=== PATIENT | female | born 1940 | race Caucasian/White ===

== ENCOUNTER 2020-03-28 19:24 | Observation (INO) ==
[2020-03-28] MEDS ORDERED: SODIUM CHLORIDE 0.9% 1,000 ML IV STA (20:04)
[2020-03-28] MEDS ORDERED: ONDANSETRON 4 MG/2 ML VIAL IV STA (20:04)
[2020-03-28 20:10] LABS: Basophils # 0.1 10*3/uL (0.0-0.2); Basophils % 0.6 % (0.0-0.8); Eosinophils # 0.1 10*3/uL (0.0-0.87); Hematocrit 40.5 VOL% (35.7-47.0); Hemoglobin 13.2 GM/DL (12.0-16.0); Immature Granulocytes % 1.3 %; Immature Granulocytes Absolute 0.13 #; Lymphocytes # 1.3 10*3/uL (1.4-4.0); Lymphocytes % 13.3 % (21.3-54.2); Mean Corpuscular HGB Conc 32.6 GM/DL (32-36); Mean Corpuscular Volume 86.5 FL (87-102); Mean Platelet Volume 10.3 FL (9.6-12.0); Monocytes % 5.2 % (1.7-12.7); Neutrophils % 78.6 % (38.7-73.9); Platelet Count 211 T/CUMM (130-400); Red Blood Count 4.68 MC/CUMM (3.8-5.5); Red Cell Distribution Width 12.5 % (9.3-17.3); White Blood Count 9.9 T/CUMM (4-12)
[2020-03-28] MEDS ORDERED: hydrALAZINE 20 MG/1 ML VIAL IV STA (20:18)
[2020-03-28 20:35] LABS: Alanine Aminotransferase 20 U/L (13-56); Albumin 2.9 G/DL (3.4-5.0); Alkaline Phosphatase 106 U/L (45-117); Aspartate Amino Transferase 25 U/L (0-37); Bilirubin,Total < 0.39 MG/DL (0.2-1.0); Blood Urea Nitrogen 27 MG/DL (7-18); Calcium 9.4 MG/DL (8.5-10.1); Estimated Glom Filtration Rate 32 ML/MIN; Ferritin 173.6 ng/ml (8-252); Glucose 235 MG/DL (74-106); Osmolality,Calculated 282.1 MOS/KG (273-304); Total Protein 8.2 G/DL (6.4-8.3)
[2020-03-28 21:40] LABS: Bilirubin,Urine Negative (Negative); Blood, Urine Negative (Negative); Glucose,Urine (UA) >=500 mg/dL (Negative); Ketones,Urine 5 mg/dL (Negative); Nitrite,Urine Negative (Negative); Protein,Urine >=500 MG/DL; RBC,Urine 1 /HPF (0-4); Urine Appearance CLEAR (Clear); Urine Color Yellow (Yellow); Urine Specific Gravity 1.013 (1.001-1.035); Urine Urobilinogen < 2.0 EU/DL (0.2-1.0); WBC,Urine 1 /HPF (0-6)
[2020-03-28] MEDS ORDERED: ONDANSETRON 4 MG/2 ML VIAL IV PRN (22:45)
[2020-03-28] MEDS ORDERED: ACETAMINOPHEN 325 MG TABLET PO PRN (22:45)
[2020-03-29] MEDS: SODIUM CHLORIDE 0.9% 1,000 ML IV SCH ×3 (00:14→16:30)
[2020-03-29 01:30] LABS: Basophils # 0.1 10*3/uL (0.0-0.2); Basophils % 0.5 % (0.0-0.8); Eosinophils % 0.2 % (0.00-10.9); Hemoglobin 12.5 GM/DL (12.0-16.0); Lymphocytes # 1.9 10*3/uL (1.4-4.0); Lymphocytes % 18.6 % (21.3-54.2); Mean Corpuscular HGB Conc 32.9 GM/DL (32-36); Mean Corpuscular Volume 86.8 FL (87-102); Monocytes % 6.2 % (1.7-12.7); Neutrophils % 73.5 % (38.7-73.9); Platelet Count 203 T/CUMM (130-400); Red Blood Count 4.38 MC/CUMM (3.8-5.5); Red Cell Distribution Width 12.5 % (9.3-17.3); White Blood Count 10.4 T/CUMM (4-12)
[2020-03-29 01:50] LABS: Albumin 2.5 G/DL (3.4-5.0); Bilirubin,Total 0.4 MG/DL (0.2-1.0); Calcium 8.7 MG/DL (8.5-10.1); Osmolality,Calculated 284.7 MOS/KG (273-304); Total Protein 7.2 G/DL (6.4-8.3)
[2020-03-29] MEDS: PANTOPRAZOLE 40 MG TABLET PO SCH (08:37)
[2020-03-29] MEDS: carvediloL 6.25 MG TABLET PO SCH ×2 (13:22→21:40)
[2020-03-29] MEDS ORDERED: hydrALAZINE 20 MG/1 ML VIAL IV PRN (20:01)
[2020-03-30] MEDS: SODIUM CHLORIDE 0.9% 1,000 ML IV SCH (01:18)
[2020-03-30 06:20] LABS: Basophils % 0.5 % (0.0-0.8); Eosinophils # 0.3 10*3/uL (0.0-0.87); Eosinophils % 3.3 % (0.00-10.9); Hematocrit 33.8 VOL% (35.7-47.0); Hemoglobin 10.6 GM/DL (12.0-16.0); Immature Granulocytes % 0.5 %; Immature Granulocytes Absolute 0.04 #; Lymphocytes # 2.4 10*3/uL (1.4-4.0); Lymphocytes % 29.8 % (21.3-54.2); Mean Corpuscular HGB Conc 31.4 GM/DL (32-36); Mean Corpuscular Volume 90.4 FL (87-102); Mean Platelet Volume 10.5 FL (9.6-12.0); Monocytes % 7.7 % (1.7-12.7); Neutrophils % 58.2 % (38.7-73.9); Platelet Count 158 T/CUMM (130-400); Red Blood Count 3.74 MC/CUMM (3.8-5.5); Red Cell Distribution Width 12.8 % (9.3-17.3); White Blood Count 8.1 T/CUMM (4-12)
[2020-03-30 06:44] LABS: Calcium 7.8 MG/DL (8.5-10.1); Osmolality,Calculated 292.8 MOS/KG (273-304)
[2020-03-30] MEDS ORDERED: MAGNESIUM SULF RIDER 2 GM in PREMIX 1 EACH IV ONE ×2 (07:20→09:00)
[2020-03-30] MEDS ORDERED: MAGNESIUM SULF RIDER 2 GM in PREMIX 1 EACH IV PRN (09:06)
[2020-03-30] MEDS ORDERED: MAGNESIUM SULF RIDER 4 GM in PREMIX 1 EACH IV PRN (09:06)
[2020-03-30] MEDS: PANTOPRAZOLE 40 MG TABLET PO SCH (09:56)
[2020-03-30] MEDS: carvediloL 6.25 MG TABLET PO SCH ×2 (09:56→20:19)
[2020-03-30] MEDS: ASPIRIN EC 81 MG TABLET PO SCH (10:19)
[2020-03-30] MEDS ORDERED: DEXTROSE 50% 25 GM/50 ML VIAL IV PRN (14:38)
[2020-03-30] MEDS ORDERED: GLUCAGON 1 MG VIAL IM PRN (14:38)
[2020-03-31 05:47] LABS: Basophils % 0.5 % (0.0-0.8); Eosinophils # 0.1 10*3/uL (0.0-0.87); Eosinophils % 1.6 % (0.00-10.9); Hematocrit 34.3 VOL% (35.7-47.0); Immature Granulocytes % 0.6 %; Immature Granulocytes Absolute 0.05 #; Lymphocytes # 1.9 10*3/uL (1.4-4.0); Lymphocytes % 23.3 % (21.3-54.2); Mean Corpuscular HGB Conc 32.1 GM/DL (32-36); Mean Corpuscular Volume 89.6 FL (87-102); Mean Platelet Volume 10.7 FL (9.6-12.0); Monocytes % 8.6 % (1.7-12.7); Neutrophils % 65.4 % (38.7-73.9); Platelet Count 154 T/CUMM (130-400); Red Blood Count 3.83 MC/CUMM (3.8-5.5); Red Cell Distribution Width 12.9 % (9.3-17.3); White Blood Count 8.2 T/CUMM (4-12)
[2020-03-31] MEDS: SODIUM CHLORIDE 0.9% 1,000 ML IV SCH (05:52)
[2020-03-31 06:08] LABS: Calcium 8.6 MG/DL (8.5-10.1); Osmolality,Calculated 288.3 MOS/KG (273-304)
[2020-03-31] MEDS ORDERED: SODIUM CHLORIDE 0.9% 1,000 ML IV SCH (08:00)
[2020-03-31] MEDS: PANTOPRAZOLE 40 MG TABLET PO SCH (10:02)
[2020-03-31] MEDS: carvediloL 6.25 MG TABLET PO SCH ×2 (10:02→15:18)
[2020-03-31] MEDS: ASPIRIN EC 81 MG TABLET PO SCH ×2 (10:02→15:17)
[2020-03-31] MEDS ORDERED: LIDOCAINE 2% 5 ML VIAL ONE (13:33)
[2020-03-31] MEDS ORDERED: ETOMIDATE 20 MG/10 ML VIAL IV ONE (13:33)
[2020-03-31] MEDS ORDERED: propofoL 200 MG/20 ML VIAL IV ONE (13:33)
[2020-03-31 16:33] VITALS: BP 156/91
== END 2020-03-31 18:05 | disposition home health service (06) ==
LOC: EDBD → EDUNIT# → N.EDINP 19:24 → N.ED 19:24 → N.TELES 03-29 00:28
PROVIDERS: ADMIT Family Medicine; ATTEND Family Medicine